=== PATIENT | female | born 1945 | race Two or more races ===

== ENCOUNTER → 2017-04-12 | Outpatient (CLI) | payer OTHER | END | disposition home or self-care (01) | LOC: NUCLEAR 11:41 | DX: M81.0 Age-related osteoporosis without current pathological fracture (principal); I10 Essential (primary) hypertension; M54.5 Low back pain; N92.1 Excessive and frequent menstruation with irregular cycle; C55 Malignant neoplasm of uterus, part unspecified; L25.8 Unspecified contact dermatitis due to other agents ==

== ENCOUNTER → 2017-10-20 | Outpatient (CLI) | payer OTHER | END | disposition home or self-care (01) | LOC: MAMO-SONO 13:49 | DX: Z12.31 Encounter for screening mammogram for malignant neoplasm of breast (principal); Z87.898 Personal history of other specified conditions; N60.22 Fibroadenosis of left breast; N60.21 Fibroadenosis of right breast ==

== ENCOUNTER 2018-04-23 11:00 | Outpatient (CLI) | payer OTHER | END 2018-04-23 17:00 | disposition home or self-care (01) | LOC: SONOGRAMA 11:00 → MAMO-SONO 11:15 → SONOGRAMA 17:00 | DX: N63.21 Unspecified lump in the left breast, upper outer quadrant (principal) ==

== ENCOUNTER → 2018-08-16 | Outpatient (CLI) | payer OTHER | END | disposition home or self-care (01) | LOC: NUCLEAR 15:00 | DX: L03.113 Cellulitis of right upper limb (principal); M79.601 Pain in right arm ==

== ENCOUNTER 2018-11-08 12:57 | Outpatient (CLI) | payer OTHER | END 2018-11-08 15:11 | disposition home or self-care (01) | LOC: MAMO-SONO 12:57 | DX: Z12.31 Encounter for screening mammogram for malignant neoplasm of breast (principal); Z87.898 Personal history of other specified conditions; Z85.3 Personal history of malignant neoplasm of breast ==

== ENCOUNTER 2018-11-13 15:11 | Outpatient (CLI) | payer OTHER | END 2018-11-13 18:15 | disposition home or self-care (01) | LOC: MRI 15:11 | DX: N92.1 Excessive and frequent menstruation with irregular cycle (principal); Z76.0 Encounter for issue of repeat prescription; E03.8 Other specified hypothyroidism; E66.8 Other obesity; E78.89 Other lipoprotein metabolism disorders; M54.5 Low back pain; M89.8X8 Other specified disorders of bone, other site; I11.9 Hypertensive heart disease without heart failure; R42 Dizziness and giddiness; Z68.33 Body mass index [BMI] 33.0-33.9, adult; E66.09 Other obesity due to excess calories; E66.3 Overweight | CPT/HCPCS: 70540; 70551 ==

== ENCOUNTER 2019-11-21 12:45 | Outpatient (CLI) | payer OTHER | END 2019-11-21 13:10 | disposition home or self-care (01) | LOC: MAMO-SONO 12:45 | PROVIDERS: ATTEND Specialist | DX: C50.911 Malignant neoplasm of unspecified site of right female breast (principal); N60.22 Fibroadenosis of left breast; Z12.31 Encounter for screening mammogram for malignant neoplasm of breast ==

== ENCOUNTER 2020-09-16 09:58 | Outpatient (CLI) | payer OTHER | END 2020-09-16 10:00 | disposition home or self-care (01) | LOC: TOM 09:58 | PROVIDERS: ATTEND Internal Medicine | DX: J09.X2 Influenza due to identified novel influenza A virus with other respiratory manifestations (principal); M54.5 Low back pain; E66.8 Other obesity; E78.9 Disorder of lipoprotein metabolism, unspecified ==

== ENCOUNTER 2020-09-16 11:25 | Outpatient (CLI) | payer OTHER | END 2020-09-16 11:36 | disposition home or self-care (01) | LOC: CIR.AMB 11:25 → LAB 11:25 → CIR.AMB 11:36 | PROVIDERS: ATTEND Internal Medicine | DX: E66.8 Other obesity (principal) ==

== ENCOUNTER → 2020-10-01 14:26 | Outpatient (CLI) | payer OTHER | END | disposition home or self-care (01) | LOC: NUCLEAR 14:15 | PROVIDERS: ATTEND Internal Medicine | DX: M89.9 Disorder of bone, unspecified (principal); M54.5 Low back pain; M81.0 Age-related osteoporosis without current pathological fracture ==

== ENCOUNTER → 2020-12-02 | Outpatient (CLI) | payer OTHER | END | disposition home or self-care (01) | LOC: MAMO-SONO 09:15 | PROVIDERS: ATTEND Specialist | DX: R92.1 Mammographic calcification found on diagnostic imaging of breast (principal); N64.89 Other specified disorders of breast; Z85.3 Personal history of malignant neoplasm of breast; Z12.31 Encounter for screening mammogram for malignant neoplasm of breast ==

== ENCOUNTER 2021-12-16 11:56 | Outpatient (CLI) | payer OTHER | END 2021-12-16 12:17 | disposition home or self-care (01) | LOC: MAMO-SONO 11:56 | PROVIDERS: ATTEND Specialist | DX: Z85.3 Personal history of malignant neoplasm of breast (principal) ==

== ENCOUNTER 2022-02-12 13:06 | Emergency (ER) | payer OTHER ==
[~2022-02-12] VITALS: Ht 157.5 cm; Wt 68.9 kg
[~2022-02-12 13:06] MED LIST: CEFADROXIL500 MG PO; CELEBREX100 MG PO; LEVOTHYROXINE50 MCG; SIMVASTATIN20 MG
== END 2022-02-12 19:31 | disposition home or self-care (01) ==
LOC: ER 13:06
DX: J06.9 Acute upper respiratory infection, unspecified (principal); Z20.822 Contact with and (suspected) exposure to COVID-19

== ENCOUNTER 2023-05-11 12:49 | Outpatient (CLI) | payer OTHER | END 2023-05-11 12:51 | disposition home or self-care (01) | LOC: NUCLEAR 12:49 | PROVIDERS: ATTEND Internal Medicine | DX: M81.0 Age-related osteoporosis without current pathological fracture (principal) ==